=== PATIENT | male | born 1995 | race Caucasian/White ===

== ENCOUNTER 2016-11-10 23:33 | Emergency (ER) | payer OTHER ==
[~2016-11-10] VITALS: Ht 175.3 cm; Wt 79.5 kg
--- NOTE | 2016-11-10 23:38 | ED.REPORT ---
HPI-Chest Pain Under 40 Date of Service Nov 10, 2016 ED Provider: Maximino Ortiz MD A 20 year old male with a history of ADHD and anxiety and a family history of thyroid, lung and throat cancer presents to the ED complaining of dizziness. The pt has been experiencing mild headaches for two weeks and began experiencing dizziness two days ago. The dizziness is described as a "constant spinning" that is exacerbated by motion and is worse at night. This is accompanied by nausea, ear ringing, right ear pressure and intermittent lightheadedness, though the pt denies migraine headache, numbness, weakness or blurred vision. He also admits to productive cough with yellow sputum that has been present for several weeks. The pt has not experienced any recent head injury. He was seen at [facility] yesterday with a negative workup and was told that he may require an MRI. Nursing Notes Stated Complaint: DIZZY, LIGHT HEADED Nursing Notes Reviewed: Yes Allergies: Coded Allergies: No Known Allergies (Unverified , 11/10/16) Scheduled Fluticasone Propionate (Flonase Allergy Relief) 50 Mcg/Actuation Titus.susp 9.9 ML NS DAILY Scheduled PRN Meclizine (Bonine) 25 Mg Tab.chew 25 MG PO QID PRN PRN For Dizziness General Time Seen by MD: 23:50 Chief Complaint Other (Dizziness) Hx Obtained From: Patient Arrived By: Walk-in Onset Occurred: 2 days ago Symptom Duration: Since onset Recent Healthcare: Recent doctor visit Similar Sx Previous: No Past Medical History Past Medical History ADHD Anxiety Past Surgical History None reported Family History Thyroid, lung and throat cancer Smoking History Unknown if Ever Smoker Social History Other Social History: Good social support Ambulatory Status Independent Review of Systems Review of Systems Note: right ear pressure denies migraine headache Respiratory: Reports: Prod cough, yellow, Denies: Shortness of breath Cardiovascular: Denies: Chest pain GI: Reports: Nausea, Denies: Abdominal pain, Vomiting Musculoskeletal: Denies: Back pain, Neck pain Skin: Denies Rash Neurologic: Reports: Dizziness, Headache, Lightheaded, Denies: Numbness, Weakness Complete sys rev & neg: except as marked. Eyes: Denies: Blurred bilateral Ears / Nose / Throat: Reports: Ear ringing bilateral Physical Exam Initial Vital Signs Initial VS: Reviewed General/Constitutional: Awake, Alert Respiratory / Chest: Atraumatic, Breath sounds NL, Breath sounds = bilat, No respiratory distress Cardiovascular: Heart rate NL, Regular rhythm soft systolic murmur, upper right sternal border Neck: Atraumatic, Supple, Full range of motion Abdomen: Atraumatic, Soft, Non-tender Back: Atraumatic, Full range of motion Lower Extremity / Pelvis / MS: Atraumatic, Full range of motion Skin: Atraumatic, Color NL, No rash, Warm, Dry Neurologic: Oriented X3, Speech NL, No motor deficits, No sensory deficits tandem gait is normal gait steady Romberg negative normal head impulse horizontal nystagmus with a fast phase to the right no nystagmus with Hamdia-Hallpike absent skew deviation Psychiatric: Affect NL, Mood NL Head / Eyes: Atraumatic, Normocephalic, PERRL, EOMI ENT: Atraumatic, Airway patent, Mucous membranes moist, Tympanic membs NL mild muffling in the right ear Upper Extremity / MS: Atraumatic, Full range of motion Interpretation & Diagnostics PROCEDURE: MRI BRAIN WITHOUT CONTRAST IMPRESSION: 1. No MRI evidence of intracranial pathology. 2. Sinusitis. Dictated by: Matteo Mendez M.D. on 11/11/2016 at 10:27 Approved by: Matteo Mendez M.D. on 11/11/2016 at 10:35 Lab Results Interpretation Lab Results Interpretation: Laboratory results from [facility], 11/09/2016: negative urine drug screen negative chemistries white count: 14.8 treated for reflux and dizziness started on ondansetron and meclizine CT Head Interpretation CONCLUSION: Normal except for some sinusitis. Re-Eval/Medical Decision Med Decision/Clinical Course 20-year-old male with no primary care. Has had persistent vertigo for 2 days. Some URI symptoms with this, no fevers. He looks well and neurologic exam is grossly normal however I have some concern that his head impulse is postive. Has a negative head CT, and he is anxious I think it best that we rule out posterior stroke. He does have some sinus congestion without signs of infection. If MR is negative then can be discharged on symptomatic control for symptoms with the addition of a nasal steroid. Source of Hx: Old records Re-Evaluation/Progress #1: Time of Eval: 00:50 Patient Status: Condition improved Re-Evaluation/Progress Note: Pt rechecked, who is anxious and nauseated. CT results are discussed. Re-Evaluation/Progress #2: Time of Eval: 01:22 Re-Evaluation/Progress Note: Pt rechecked, who is resting. Further physical examination is performed. Re-Evaluation/Progress #3: Time of Eval: 01:33 Re-Evaluation/Progress Note: Pt rechecked, who is stable. The plan for MRI at 07:00 is discussed. The pt understands and agrees with the plan. All questions are addressed at this time. Consultation : Referral / Consult Name: Gary Schilling MD Call Returned at: 01:32 [address] Usher: Agrees with plan Note: Spoke with Dr. Schilling, radiology, who agrees with the plan for MRI at 07:00. Counseled Regarding: Diagnosis, Lab results Discharge & Departure Shift Change Sign-Out Patient Care Transferred: Yes Discussed Complaint(s): Yes Imaging Studies: Ordered, not yet done Primary Impression: Vertigo Disposition: Home Discharge Condition All VS Reviewed: Yes Condition: Stable Patient Instructions: Vertigo (ED) Additional Instructions: Emergency Department evaluation included interview, examination, labs, CT scan of brain and MRI of brain. No stroke is identified. There is some sinus congestion and this may be affecting balance mechanism. Recommend a steroid nasal spray used daily. Meclizine and ondansetron as needed for dizziness and nausea. Call to make an appointment to see a primary care doctor as soon as possible. Return emergency Department for severe headaches severe dizziness uncontrolled vomiting. Referrals: Sri Alvarado MD (PCP) Care Transferred to: Dr. Steinberg Care Transferred at: 03:00 Scribe Attestation Portions of this note were transcribed by Bea Webb. I, Dr. Ortiz personally performed the history, physical exam and medical decision-making; I reviewed and confirmed the accuracy of the information in the transcribed note. copies to: Sri Alvarado MD, Christopher W MD Nov 10, 2016 23:38 BEA WEBB Nov 11, 2016 00:02 Maximino Ortiz MD Nov 11, 2016 04:00 Farhat Zaragoza Nov 11, 2016 10:56 Ventura Steinberg MD Nov 10, 2016 23:38 BEA WEBB Nov 11, 2016 00:02 Maximino Ortiz MD Nov 11, 2016 04:00 Farhat Zaragoza Nov 11, 2016 10:56
[2016-11-10 23:43] VITALS: BP 142/67; PULSE 76; RESP 18; O2SAT 100
[2016-11-11] MEDS ORDERED: Ondansetron 8 mg ODT Tablet PO ONE (00:50)
[2016-11-11] MEDS ORDERED: FLUT9.9S NS (04:06)
[2016-11-11 06:09] VITALS: BP 112/46; PULSE 60; RESP 18; O2SAT 98
--- NOTE | 2016-11-11 06:59 | DRSVH ---
PROCEDURE: CT BRAIN WITHOUT CONTRAST ([id number]) INDICATIONS: 20 year-old male with vertigo. TECHNIQUE: Noncontrast 4.5 mm thick angled axial sections acquired from the foramen magnum to the vertex, with c oronal reformats. COMPARISON: None. FINDINGS: Preliminary interpretation rendered by [facility]. Image quality: Excellent. CSF spaces: Basal cisterns are patent. No extra-axial fluid collections. Ventricles are normal in size and shape. Brain: No midline shift. No intracranial masses or hemorrhage. Mcdaniels-white matter interface is norm al. Skull and face: Calvarium and visualized facial bones are intact, without suspicious lesions. Sinuses: There is confluent fluid opacification of the visualized frontal sinuses, as well as both an terior ethmoid sinuses. Mastoid air cells appear clear. IMPRESSION: 1. No acute intracranial abnormalities. 2. Findings consistent with confluent frontal-ethmoid sinusitis. No significant discrepancy with preliminary [facility] report. Dictated by: Ever Villeda M.D. on 11/11/2016 at 6:56 Approved by: Ever Villeda M.D. on 11/11/2016 at 6:58
--- NOTE | 2016-11-11 10:37 | DRSVH ---
PROCEDURE: MRI BRAIN WITHOUT CONTRAST ([id number]) INDICATIONS: vertigo TECHNIQUE: Noncontrast axial T1 spin echo, axial T2 fast spin echo, sagittal and axial FLAIR, coronal T2 fast sp in echo, axial gradient echo, axial diffusion and ADC through the brain. COMPARISON: CT from 11/11/2016. FINDINGS: Image quality: Excellent. CSF Spaces: Basal cisterns are patent. No extra-axial fluid collections. Ventricles are normal in size and shape. Brain: No intracranial masses or hemorrhage. Mcdaniels/white matter interface is normal. Brainstem appe ars normal. Diffusion-weighted images demonstrate no acute ischemic insult. No chronic ischemic ins ults. Normal intravascular flow voids are present. Skull and face: Calvarium has normal marrow signal. Orbits appear normal. Sinuses: There is maxillary sinus mucosal thickening left greater than right with associated left si ded air-fluid level. Complete opacification of the frontal sinuses and most ethmoid air cells. IMPRESSION: 1. No MRI evidence of intracranial pathology. 2. Sinusitis. Dictated by: Matteo Mendez M.D. on 11/11/2016 at 10:27 Approved by: Matteo Mendez M.D. on 11/11/2016 at 10:35
[2016-11-11 11:00] VITALS: BP 146/105; PULSE 66; RESP 18
--- NOTE | 2016-11-11 11:00 | PCM.EDPN ---
ED Note Date of Service Nov 11, 2016 I assumed care of this patient from Dr. Steinberg at approximately [address] Ortiz's note in detail and interviewed the patient myself and reviewed all of the diagnostic findings. Specifically, his MRI brain is normal other than sinusitis. I believe that his symptoms, given the normal MRI, are most consistent with labyrinthitis. I have recommended meclizine as needed for dizziness and outpatient follow-up in a few days if not improving. Assessment: Vertigo, labyrinthitis. Plan: Discharge to home meclizine when necessary, follow-up in the clinic as above. Orlando Ha MD Nov 11, 2016 11:00
[2016-11-11] MEDS ORDERED: MECL-114 PO (11:03)
== END 2016-11-11 11:05 | disposition home or self-care (01) ==
LOC: SED 23:33
DX: R42 Dizziness and giddiness (principal); H83.09 Labyrinthitis, unspecified ear; R51 Headache; F41.9 Anxiety disorder, unspecified; F90.9 Attention-deficit hyperactivity disorder, unspecified type